=== PATIENT | female | born 1990 | race Hispanic/Latino ===

== ENCOUNTER 2018-03-13 15:09 | Emergency (ER) | payer SELFPAY ==
[~2018-03-13] VITALS: Ht 149.9 cm; Wt 97.5 kg
[~2018-03-13 15:09] MED LIST: CEFUROXIME250 MG PO; ZOFRAN ODT4 MG SL
--- OUTSIDE RECORDS SUMMARY | 2018-03-13 15:13 | XMS REPORT | CCD ---
Author Author Auto Generated Organization [facility] Address Unknown Phone Unavailable Care Team Providers Care Airline Dispatcher Name Role Phone Naun Rodgers CP Allergies, Adverse Reactions, Alerts Substance Reaction Status amoxicillin Active Vital Signs Most recent to oldest [Reference Range]: 1 Height 149.86 cm (01/28/2012 23:28:00) Weight 81.818 kg (01/28/2012 23:28:00) Results URINALYSIS Most recent to oldest [Reference Range]: 1 UA Turbidity [Clear] Clear (01/28/2012 23:10:00) UA Color Ltyellow *NA* (01/28/2012 23:10:00) UA pH [5.0-8.0] 6.0 (01/28/2012 23:10:00) UA Spec Grav [<=1.030] 1.019 (01/28/2012 23:10:00) UA Glucose [Negative mg/dL] Negative mg/dL *NA* (01/28/2012 23:10:00) UA Blood [Negative] Large *ABN* (01/28/2012 23:10:00) UA Ketones [Negative mg/dL] Negative mg/dL *NA* (01/28/2012 23:10:00) UA Protein [Negative mg/dL] Negative mg/dL (01/28/2012 23:10:00) UA Urobilinogen [0.1-1.0 mg/dL] <=1.0 mg/dL *NA* (01/28/2012 23:10:00) UA Bili [Negative] Negative *NA* (01/28/2012 23:10:00) UA Leuk Est [Negative] Negative (01/28/2012 23:10:00) UA Nitrite [Negative] Negative (01/28/2012 23:10:00) UA WBC [0-5 /HPF] 3 /HPF (01/28/2012 23:10:00) UA RBC [0-2 /HPF] 6 /HPF *HI* (01/28/2012 23:10:00) UA Bacteria [None Seen /HPF] Occasional /HPF *NA* (01/28/2012 23:10:00) UA Sq Epi [Few /LPF] Few /LPF *NA* (01/28/2012 23:10:00) UA Mucus [None Seen /LPF] Few /LPF *NA* (01/28/2012 23:10:00) BLOOD BANK RESULTS Most recent to oldest [Reference Range]: 1 ABO/Rh O POS *Unknown* (01/29/2012 00:01:00) Antibody Scrn Negative (01/29/2012 00:01:00) CHEMISTRY Most recent to oldest [Reference Range]: 1 Sodium Lvl [135-145 mEq/L] 138 mEq/L (01/29/2012 00:01:00) Potassium Lvl [3.5-5.1 mEq/L] 3.9 mEq/L (01/29/2012 00:01:00) Chloride Lvl [95-109 mEq/L] 105 mEq/L (01/29/2012 00:01:00) CO2 [24-32 mEq/L] 27 mEq/L (01/29/2012 00:01:00) AGAP [10.0-20.0 mEq/L] 9.9 mEq/L *LOW* (01/29/2012 00:01:00) Creatinine Lvl [0.5-1.4 mg/dL] 0.7 mg/dL (01/29/2012 00:01:00) BUN [7-22 mg/dL] 17 mg/dL (01/29/2012 00:01:00) B/C Ratio [6-25] 24 (01/29/2012 00:01:00) Glucose Lvl [70-99 mg/dL] 104 mg/dL 1 *HI* (01/29/2012 00:01:00) Total Protein [6.4-8.4 g/dL] 7.1 g/dL (01/29/2012 00:01:00) Albumin Lvl [3.5-5.0 g/dL] 3.6 g/dL (01/29/2012 00:01:00) Globulin [2.0-4.0 g/dL] 3.5 g/dL (01/29/2012 00:01:00) A/G Ratio [0.7-1.6] 1.0 (01/29/2012 00:01:00) Calcium Lvl [8.5-10.5 mg/dL] 8.2 mg/dL *LOW* (01/29/2012 00:01:00) ALT [0-65 unit/L] 35 unit/L (01/29/2012 00:01:00) AST [0-37 unit/L] 24 unit/L (01/29/2012 00:01:00) Alk Phos [39-136 unit/L] 56 unit/L (01/29/2012 00:01:00) Bili Total [0.2-1.3 mg/dL] 0.2 mg/dL (01/29/2012 00:01:00) hCG Tot 455 mIU/mL 2 *NA* (01/29/2012 00:01:00) U Preg [Negative] Positive *ABN* (01/28/2012 23:10:00) 1Interpretive Data: Adult reference range values reflect the clinical guidelines of the [place] [employer]. 2Interpretive Data: Reference Range: Male 0 - 5 mIU/mL Non- Female 0 - 5 mIU/mL Note: hCG result should be used in conjunction with symptoms, results of other tests, and clinical impressions. Weeks of Gestation hCG (mIU/mL) 3 6 - 71 4 10-750 5 217 - 7,138 6 158 -31,795 7 3,697 - 163,563 8 32,065 - 149,571 9 63,803 - 151,410 10 46,506 - 186,977 11 27,832 - 210,612 14 13,950 - 62,530 15 12,039 - 70,971 16 9,040 - 56,451 17 8,175 - 55,868 18 8,099 - 58,176 HEMATOLOGY Most recent to oldest [Reference Range]: 1 WBC [3.7-10.4 K/CMM] 11.6 K/CMM *HI* (01/29/2012 00:01:00) RBC [4.20-5.40 M/CMM] 3.44 M/CMM *LOW* (01/29/2012 00:01:00) Hgb [12.0-16.0 g/dL] 9.8 g/dL *LOW* (01/29/2012 00:01:00) Hct [36.0-48.0 %] 29.9 % *LOW* (01/29/2012 00:01:00) MCV [81.0-99.0 fL] 86.9 fL (01/29/2012 00:01:00) MCH [27.0-31.0 pg] 28.4 pg (01/29/2012 00:01:00) MCHC [32.0-36.0 g/dL] 32.7 g/dL (01/29/2012 00:01:00) RDW [11.5-14.5 %] 14.3 % (01/29/2012 00:01:00) Platelet [133-450 K/CMM] 348 K/CMM (01/29/2012 00:01:00) MPV [7.4-10.4 fL] 8.8 fL (01/29/2012 00:01:00) Segs [45.0-75.0 %] 69.4 % (01/29/2012 00:01:00) Lymphocytes [20.0-40.0 %] 21.2 % (01/29/2012 00:01:00) Monocytes [2.0-12.0 %] 6.6 % (01/29/2012 00:01:00) Eosinophils [0.0-4.0 %] 2.5 % (01/29/2012 00:01:00) Basophils [0.0-1.0 %] 0.3 % (01/29/2012 00:01:00) Segs-Bands # [1.5-8.1 K/CMM] 8.1 K/CMM (01/29/2012 00:01:00) Lymphocytes # [1.0-5.5 K/CMM] 2.5 K/CMM (01/29/2012 00:01:00) Monocytes # [0.0-0.8 K/CMM] 0.8 K/CMM (01/29/2012 00:01:00) Eosinophils # [0.0-0.5 K/CMM] 0.3 K/CMM (01/29/2012 00:01:00) Basophils # [0.0-0.2 K/CMM] 0.0 K/CMM (01/29/2012 00:01:00)
--- OUTSIDE RECORDS SUMMARY | 2018-03-13 15:13 | XMS REPORT | Continuity of Care Document ---
Author Author [facility] Interface Address Unknown Phone Unavailable Problems Problem Status Onset Date Classification Date Reported Comments Source ABDOMINAL PAIN Active 01/28/2012 [facility] Medications Medication Details Route Status Patient Instructions Ordering Provider Order Date Source Allergies, Adverse Reactions, Alerts Substance Category Reaction Severity Reaction type Status Date Reported Comments Source amoxicillin drug allergy Allergy Active [facility] Immunizations Immunization Date Given Site Status Last Updated Comments Source Results Order Name Results Value Reference Range Date Interpretation Comments Source BLOOD BANK RESULTS Antibody Scrn Negative (01/29/2012 00:01:00) 01/29/2012 Normal [facility] BLOOD BANK RESULTS ABO/Rh O POS 01/29/2012 Unknown [facility] CHEMISTRY hCG Tot 455 mIU/mL 01/29/2012 NA 2Interpretive Data: Reference Range: Male 0 - [...] 8,175 - 55,868 18 8,099 - 58,176 [facility] CHEMISTRY A/G Ratio 1.0 0.7 - 1.6 01/29/2012 Normal [facility] CHEMISTRY Globulin 3.5 g/dL 2.0 - 4.0 01/29/2012 Normal [facility] CHEMISTRY AGAP 9.9 meq/L 10.0 - 20.0 01/29/2012 LOW [facility] CHEMISTRY B/C Ratio 24 6 - 25 01/29/2012 Normal [facility] CHEMISTRY Bili Total 0.2 mg/dL 0.2 - 1.3 01/29/2012 Normal [facility] CHEMISTRY ALT 35 unit/L 0 - 65 01/29/2012 Normal [facility] CHEMISTRY AST 24 unit/L 0 - 37 01/29/2012 Normal [facility] CHEMISTRY Alk Phos 56 unit/L 39 - 136 01/29/2012 Normal [facility] CHEMISTRY Total Protein 7.1 g/dL 6.4 - 8.4 01/29/2012 Normal [facility] CHEMISTRY Creatinine Lvl 0.7 mg/dL 0.5 - 1.4 01/29/2012 Normal [facility] CHEMISTRY BUN 17 mg/dL 7 - 22 01/29/2012 Normal [facility] CHEMISTRY Sodium Lvl 138 meq/L 135 - 145 01/29/2012 Normal [facility] CHEMISTRY Potassium Lvl 3.9 meq/L 3.5 - 5.1 01/29/2012 Normal [facility] CHEMISTRY Glucose Lvl 104 mg/dL 70 - 99 01/29/2012 HI 1Interpretive Data: Adult reference range values reflect the clinical guidelines of the [place] [employer]. [facility] CHEMISTRY Chloride Lvl 105 meq/L 95 - 109 01/29/2012 Normal [facility] CHEMISTRY Calcium Lvl 8.2 mg/dL 8.5 - 10.5 01/29/2012 LOW [facility] CHEMISTRY CO2 27 meq/L 24 - 32 01/29/2012 Normal [facility] CHEMISTRY Albumin Lvl 3.6 g/dL 3.5 - 5.0 01/29/2012 Normal [facility] HEMATOLOGY MPV 8.8 fL 7.4 - 10.4 01/29/2012 Normal [facility] HEMATOLOGY MCH 28.4 pg 27.0 - 31.0 01/29/2012 Normal [facility] HEMATOLOGY MCHC 32.7 g/dL 32.0 - 36.0 01/29/2012 Normal [facility] HEMATOLOGY RDW 14.3 % 11.5 - 14.5 01/29/2012 Normal [facility] HEMATOLOGY Platelet 348 K/CMM 133 - 450 01/29/2012 Normal [facility] HEMATOLOGY WBC 11.6 K/CMM 3.7 - 10.4 01/29/2012 HI [facility] HEMATOLOGY RBC 3.44 M/CMM 4.20 - 5.40 01/29/2012 LOW [facility] HEMATOLOGY Hgb 9.8 g/dL 12.0 - 16.0 01/29/2012 LOW [facility] HEMATOLOGY Hct 29.9 % 36.0 - 48.0 01/29/2012 LOW [facility] HEMATOLOGY MCV 86.9 fL 81.0 - 99.0 01/29/2012 Normal [facility] HEMATOLOGY Eosinophils # 0.3 K/CMM 0.0 - 0.5 01/29/2012 Normal [facility] HEMATOLOGY Basophils # 0.0 K/CMM 0.0 - 0.2 01/29/2012 Normal [facility] HEMATOLOGY Monocytes # 0.8 K/CMM 0.0 - 0.8 01/29/2012 Normal [facility] HEMATOLOGY Basophils 0.3 % 0.0 - 1.0 01/29/2012 Normal [facility] HEMATOLOGY Lymphocytes # 2.5 K/CMM 1.0 - 5.5 01/29/2012 Normal [facility] HEMATOLOGY Segs-Bands # 8.1 K/CMM 1.5 - 8.1 01/29/2012 Normal [facility] HEMATOLOGY Eosinophils 2.5 % 0.0 - 4.0 01/29/2012 Normal [facility] HEMATOLOGY Monocytes 6.6 % 2.0 - 12.0 01/29/2012 Normal [facility] HEMATOLOGY Lymphocytes 21.2 % 20.0 - 40.0 01/29/2012 Normal [facility] HEMATOLOGY Segs 69.4 % 45.0 - 75.0 01/29/2012 Normal [facility] CHEMISTRY U Preg Positive *ABN* (01/28/2012 23:10:00) Negative 01/29/2012 ABN [facility] URINALYSIS UA Urobilinogen <=1.0 mg/dL
*NA*
(01/28/2012 23:10:00) <sup> </sup> 0.1 - 1.0 01/29/2012 [facility] URINALYSIS UA Color Ltyellow 01/29/2012 [facility] URINALYSIS UA Bacteria Occasional /HPF *NA* (01/28/2012 23:10:00) None Seen 01/29/2012 [facility] URINALYSIS UA RBC 6 /HPF 0 - 2 01/29/2012 [facility] URINALYSIS UA Mucus Few /LPF *NA* (01/28/2012 23:10:00) None Seen 01/29/2012 [facility] URINALYSIS UA Leuk Est Negative (01/28/2012 23:10:00) Negative 01/29/2012 Normal [facility] URINALYSIS UA Nitrite Negative (01/28/2012 23:10:00) Negative 01/29/2012 Normal [facility] URINALYSIS UA WBC 3 /HPF 0 - 5 01/29/2012 Normal [facility] URINALYSIS UA Sq Epi Few /LPF *NA* (01/28/2012 23:10:00) Few 01/29/2012 NA [facility] URINALYSIS UA Glucose Negative mg/dL *NA* (01/28/2012 23:10:00) Negative 01/29/2012 NA [facility] URINALYSIS UA Ketones Negative mg/dL *NA* (01/28/2012 23:10:00) Negative 01/29/2012 NA [facility] URINALYSIS UA Blood Large *ABN* (01/28/2012 23:10:00) Negative 01/29/2012 ABN [facility] URINALYSIS UA Bili Negative *NA* (01/28/2012 23:10:00) Negative 01/29/2012 NA [facility] URINALYSIS UA Turbidity Clear (01/28/2012 23:10:00) Clear 01/29/2012 Normal [facility] URINALYSIS UA pH 6.0 5.0 - 8.0 01/29/2012 Normal [facility] URINALYSIS UA Spec Grav 1.019 <=1.030 01/29/2012 Normal [facility] URINALYSIS UA Protein Negative mg/dL (01/28/2012 23:10:00) Negative 01/29/2012 Normal [facility] Vital Signs Vital Sign Value Date Comments Source Weight 81.818 01/29/2012 [facility] Height 149.86 cm 01/29/2012 [facility] Encounters Location Location Details Encounter Type Encounter Number Reason For Visit Attending Provider ADM Date DC Date Status Source [facility] Emergency [id number] SHANE MENDOZA 01/28/2012 01/29/2012 Active [facility] Procedures Procedure Code Date Perfomer Comments Source
[2018-03-13] MEDS ORDERED: SODIUM CHLORIDE 0.9% 1000ML 1,000 ML IV STA (15:28)
[2018-03-13] MEDS ORDERED: ONDANSETRON HCL INJ 2 MG/ML VIAL IV STA (15:28)
[2018-03-13] MEDS ORDERED: MAGNESIUM/ALUMINUM/SIMETHICONE 30 ML UDC PO ONE (15:30)
[2018-03-13] MEDS ORDERED: LIDOCAINE VISC 2% SOLN 15 ML UDC PO ONE (15:30)
[2018-03-13 15:58] LABS: BASOPHILS # (AUTO) 0.1 (0.0-0.1); BASOPHILS % 0.5 % (0.0-1.0); EOSINOPHILS # (AUTO) 0.1 (0.0-0.4); EOSINOPHILS % 1.3 % (0.0-6.0); HEMATOCRIT 37.1 % (34.2-44.1); HEMOGLOBIN 11.9 g/dL (12.0-16.0); LYMPHOCYTES # (AUTO) 3.2 (1.0-3.2); LYMPHOCYTES % 32.1 % (18.0-39.1); MEAN CORPUSCULAR HEMOGLOBIN 25.6 pg (28-32); MEAN CORPUSCULAR HGB CONC 32.1 g/dL (31-35); MEAN CORPUSCULAR VOLUME 79.8 fL (81-99); MONOCYTES # (AUTO) 0.6 (0.2-0.8); MONOCYTES % 5.8 % (4.4-11.3); NEUTROPHILS % 60.1 % (38.7-80.0); PLATELET COUNT 390 x10e3/uL (140-360); RED BLOOD COUNT 4.65 x10e6/uL (3.6-5.1); RED CELL DISTRIBUTION WIDTH 15.8 % (11.7-14.4)
[2018-03-13] MEDS ORDERED: BELLADONNA ALK/PHENOBARBITAL 5 ML UDC PO SCH (16:00)
[2018-03-13 16:13] LABS: BILIRUBIN,URINE NEGATIVE (NEGATIVE); CLARITY,URINE SL CLOUDY (CLEAR); COLOR,URINE YELLOW (YELLOW); KETONES,URINE 1+ (NEGATIVE); LEUKOCYTE ESTERASE ,URINE TRACE (NEGATIVE); NITRITE,URINE NEGATIVE (NEGATIVE); PREGNANCY TEST, URINE NEGATIVE (NEGATIVE); PROTEIN,URINE DIPSTICK NEGATIVE (NEGATIVE); URINE UROBILINOGEN 0.2 mg/dL (0.2 - 1)
[2018-03-13 16:18] LABS: ALANINE AMINOTRANSFERASE 16 IU/L (0-55); ALBUMIN 4.3 g/dL (3.5-5.0); ALBUMIN/GLOBULIN RATIO 1.3 (0.8-2.0); ALKALINE PHOSPHATASE 56 IU/L (40-150); AMYLASE 62 U/L (25-125); ANION GAP 13.4 mmol/L (8-16); BLOOD UREA NITROGEN 10 mg/dL (7-26); BUN/CREATININE RATIO 15 (6-25); CALCIUM 9.7 mg/dL (8.4-10.2); CARBON DIOXIDE 23 mmol/L (22-29); CHLORIDE 101 mmol/L (98-107); CREATININE, SERUM 0.68 mg/dL (0.57-1.11); EST GLOMERULAR FILTRATION RATE > 60 ML/MIN (60-); GLUCOSE 82 mg/dL (74-118); LIPASE 19 U/L (8-78); POTASSIUM 3.4 mmol/L (3.5-5.1); SODIUM 134 mmol/L (136-145)
[2018-03-13 16:28] LABS: BACTERIA,URINE MODERATE /HPF; EPITHELIAL CELLS,URINE MANY /LPF; MUCUS,URINE MANY (RARE); RBC,URINE 0-5 /HPF (0-5)
--- NOTE | 2018-03-13 16:53 | Diagnostic Imaging Report ---
EXAM: Gallbladder Ultrasound INDICATION: Abdominal pain. Nausea and vomiting. COMPARISON: None. TECHNIQUE: Transverse and longitudinal images of the gallbladder were obtained. FINDINGS: Liver: 10.9 cm. Increased echogenicity could be due to fatty infiltration Gallbladder: Stones/Sludge: Mild sludge. No stone. Wall: 0.2 cm Appearance: No wall thickening, pericholecystic fluid or hydrops. Sonographic Villareal's Sign: Negative Bile Ducts: Intrahepatic Ducts: No dilatation Extrahepatic Ducts: Common bile duct measures 0.2 cm, no dilatation Free Fluid: No ascites or pleural effusion The main portal vein is normal in appearance measuring 0.6 cm. The right kidney is normal in appearance measuring 9.4 cm. The pancreas, abdominal aorta and inferior vena cava are unremarkable. IMPRESSION: Mild amount of sludge in the lumen of the gallbladder. The sonographic Villareal sign is negative. No ductal dilatation is seen. Increased echogenicity in the liver could be due to fatty infiltration. Signed by: Dr. Garth Garcia M.D. on 03/13/2018 4:50 PM
== END 2018-03-13 19:02 | disposition home or self-care (01) ==
LOC: ER 15:09
DX: R11.2 Nausea with vomiting, unspecified (principal); R10.13 Epigastric pain; K80.50 Calculus of bile duct without cholangitis or cholecystitis without obstruction
CPT/HCPCS: 36415; 76705; 80053; 81001; 81025; 82150; 83690; 85025; 87086; 99284; J2405; J7030

== ENCOUNTER 2021-01-11 19:36 | Emergency (ER) | payer BC ==
[~2021-01-11] VITALS: Ht 149.9 cm; Wt 97.5 kg
[2021-01-11] MEDS ORDERED: SODIUM CHLORIDE 0.9% 1000ML 1,000 ML IV STA (20:15)
[2021-01-11] MEDS ORDERED: KETOROLAC TROMETHAMINE 30 MG/ML VIAL IV STA (20:17)
[2021-01-11] MEDS ORDERED: ONDANSETRON HCL INJ 2MG/ML 2ML 2 MG/ML VIAL IV STA ×2 (20:19→23:26)
[2021-01-11] MEDS ORDERED: ACETAMINOPHEN 325 MG TAB PO STA (20:24)
[2021-01-11 20:51] LABS: BASOPHILS % 0.3 % (0.0-1.0); EOSINOPHILS % 0.1 % (0.0-6.0); HEMATOCRIT 33.7 % (34.2-44.1); HEMOGLOBIN 10.5 g/dL (12.0-16.0); LYMPHOCYTES # (AUTO) 1.3 (1.0-3.2); LYMPHOCYTES % 9.1 % (18.0-39.1); MEAN CORPUSCULAR HEMOGLOBIN 24.3 pg (28-32); MEAN CORPUSCULAR HGB CONC 31.2 g/dL (31-35); MONOCYTES % 6.9 % (4.4-11.3); NEUTROPHILS # (AUTO) 11.7 (2.1-6.9); NEUTROPHILS % 83.2 % (38.7-80.0); PLATELET COUNT 426 x10e3/uL (140-360); RED BLOOD COUNT 4.32 x10e6/uL (3.6-5.1); RED CELL DISTRIBUTION WIDTH 16.3 % (11.7-14.4)
[2021-01-11 20:56] LABS: CLARITY,URINE HAZY (CLEAR); COLOR,URINE YELLOW (YELLOW); LEUKOCYTE ESTERASE ,URINE SMALL (NEGATIVE); NITRITE,URINE NEGATIVE (NEGATIVE)
[2021-01-11 20:57] LABS: KETONES,URINE 2+ (NEGATIVE); PROTEIN,URINE DIPSTICK NEGATIVE (NEGATIVE); URINE UROBILINOGEN 0.2 mg/dL (0.2 - 1)
[2021-01-11 21:08] LABS: ALBUMIN 4.4 g/dL (3.5-5.0); ALBUMIN/GLOBULIN RATIO 1.3 (0.8-2.0); ANION GAP 13.5 mmol/L (8-16); CALCIUM 9.4 mg/dL (8.4-10.2); CREATININE, SERUM 0.77 mg/dL (0.57-1.11); POTASSIUM 3.5 mmol/L (3.5-5.1)
[2021-01-11 21:09] LABS: BACTERIA,URINE FEW /HPF; EPITHELIAL CELLS,URINE FEW /LPF; RENAL EPITHELIAL CELLS,URINE FEW
[2021-01-11] MEDS ORDERED: IOPAMIDOL 370 MG/ML 200 ML INFUS..BTL INJ ONE (21:48)
[2021-01-11] MEDS ORDERED: SODIUM CHLORIDE 0.9% 50ML 50 ML ONE (21:48)
[2021-01-11] MEDS ORDERED: CIPROFLOXACIN 400 MG/D5W 200ML 200 ML IV STA (22:59)
[2021-01-11] MEDS ORDERED: MORPHINE SULFATE INJ 4 MG/ML INJ 1ML IV STA (23:26)
[2021-01-11] MEDS ORDERED: ONDANSETRON ODT4 MG PO (23:31)
[2021-01-11] MEDS ORDERED: CIPRO500 MG PO (23:31)
[2021-01-11] MEDS ORDERED: ACETAMINOPHEN-1 EAC4 PO (23:32)
[2021-01-11] MEDS ORDERED: MORPHINE SULFATE INJ 4 MG/ML INJ 1ML ONE (23:42)
[2021-01-11] MEDS ORDERED: ONDANSETRON HCL INJ 2MG/ML 2ML 2 MG/ML VIAL ONE (23:42)
[2021-01-12] MEDS ORDERED: MORPHINE SULFATE INJ 4 MG/ML INJ 1ML IM PRN
[2021-01-12 06:32] VITALS: BP 116/69
== END 2021-01-12 00:30 | disposition home or self-care (01) ==
LOC: ER 19:53
DX: R30.0 Dysuria (principal); R50.9 Fever, unspecified; R11.2 Nausea with vomiting, unspecified; N12 Tubulo-interstitial nephritis, not specified as acute or chronic
CPT/HCPCS: 36415; 74177; 80053; 81001; 81025; 85025; 99284; J0744; J1885; J2270; J2405; J7030; Q9967

== ENCOUNTER 2022-11-09 14:21 | Emergency (ER) | payer SELFPAY ==
[~2022-11-09] VITALS: Ht 144.8 cm; Wt 63.5 kg
[~2022-11-09 14:21] MED LIST changes: +ACETAMINOPHEN-1 EAC4 PO; +CIPRO500 MG PO; +ONDANSETRON ODT4 MG PO
[2022-11-09 14:42] VITALS: O2SAT 100
[2022-11-09] MEDS ORDERED: KETOROLAC TROMETHAMINE 30 MG/ML VIAL IV STA (15:03)
[2022-11-09] MEDS ORDERED: DIPHENHYDRAMINE HCL 25 MG CAP PO ONE (15:15)
[2022-11-09] MEDS ORDERED: SODIUM CHLORIDE 0.9% 1000ML 1,000 ML IV SCH (15:15)
[2022-11-09] MEDS ORDERED: METOCLOPRAMIDE HCL 10 MG/2ML VIAL IV ONE (15:15)
[2022-11-09] MEDS ORDERED: CARBAMAZEPINE100 M2 PO (16:44)
== END 2022-11-09 17:17 | disposition home or self-care (01) ==
LOC: ER 14:28
DX: R51.9 Headache, unspecified (principal)
CPT/HCPCS: 70450; 99284; J1885; J2765; J7030